=== PATIENT | female | born 1980 | race Caucasian/White ===

== ENCOUNTER 2016-11-03 05:29 | Day surgery (SDC) | payer BC ==
[~2016-11-03] VITALS: Ht 162.6 cm; Wt 69.4 kg
[~2016-11-03 05:29] MED LIST: VENTOLIN HFA18 GM IH; XANAX0.5 MG PO
[2016-11-03 06:57] VITALS: BP 103/77
[2016-11-03] MEDS ORDERED: ENDOCET 5-3251 EACH PO (09:22)
[2016-11-03] MEDS ORDERED: IBUPROFEN800 MG PO (09:22)
[2016-11-03 11:20] VITALS: BP 106/61
[2016-11-03 12:23] VITALS: BP 106/55
[2016-11-03 13:58] VITALS: BP 103/56
[2016-11-04 12:35] LABS: INTERNAL CONTROL VALID? YES
== END 2016-11-03 14:00 | disposition home or self-care (01) ==
LOC: SDC 05:29
PROVIDERS: Obstetrics & Gynecology
PROC: 0UB94ZZ Excision of Uterus, Percutaneous Endoscopic Approach (ICD-10-PCS; principal; 2016-11-03)
DX: D25.2 Subserosal leiomyoma of uterus (principal)
CPT/HCPCS: 84703; 88305; J0131; J0330; J0690; J1100; J1170; J2250; J2405; J2765; J3010